=== PATIENT | male | born 1995 | race Caucasian/White ===

== ENCOUNTER 2018-08-22 19:45 | Emergency (ER) | payer OTHER ==
[2018-08-22 20:17] VITALS: BP 121/76; PULSE 78; TEMP 99.3; BMI 29.2
[2018-08-22] MEDS ORDERED: MECLIZINE HCL 25 MG TABLET (FP) PO ONE (21:47)
--- NOTE | 2018-08-22 21:54 | PDOC ---
History of Present Illness - General Chief Complaint: Pain Stated Complaint: LIGHTHEADED Time Seen by Provider: 08/22/18 21:32 History Source: Patient Exam Limitations: No Limitations - History of Present Illness Initial Comments: 08/22/18 21:47 HISTORY OF PRESENT ILLNESS: This is a 22-year-old male denies medical history presents emergency Department with intermittent periods of dizziness for the past 4 days. Patient states he has a room spinning feeling which lasts for a couple of seconds up to a few minutes which is accompanied by nausea. Patient denies any vomiting. Patient is unable to identify any associated aggravating or alleviating factors. He denies any blurry vision, headaches, fevers, chills, chest pain, shortness of breath. He denies any recent massage or chiropractic procedures. No recent travel or sick contacts. PAST MEDICAL HISTORY: Denies past medical history SURGICAL HISTORY: Denies ALLERGIES: No known drug allergies REVIEW OF SYSTEMS General/Constitutional: Denies fever or chills. Denies weakness, weight change. HEENT: Denies change in vision. Denies ear pain or discharge. Denies sore throat. Cardiovascular: Denies chest pain or shortness of breath. Respiratory: Denies cough, wheezing, or hemoptysis. Gastrointestinal: Denies vomiting, diarrhea or constipation. Denies rectal bleeding. Reports nausea. Genitourinary: Denies dysuria, frequency, or change in urination. Musculoskeletal: Denies joint or muscle swelling or pain. Denies neck or back pain. Skin and breasts: Denies rash or easy bruising. Neurologic: Denies headache, loss of consciousness, or loss of sensation. Endorses vertigo. Psychiatric: Denies depression or anxiety. Endocrine: Denies increased thirst. Denies abnormal weight change. Hematologic/Lymphatic: Denies anemia, easy bleeding, or history of blood clots. Allergic/Immunologic: Denies hives or skin allergy. Denies latex allergy. PHYSICAL EXAM General Appearance: Well-appearing, appropriately dressed. No apparent distress , no intoxication. HEENT: EOMI, PERRLA, normal ENT inspection, normal voice, TMs normal, pharynx normal. No conjunctival pallor. No photophobia, scleral icterus. Neck: Supple. Trachea midline. No tenderness, rigidity, carotid bruit, stridor , lymphadenopathy, or thyromegaly. Respiratory/Chest: Lungs CTAB. No shortness of breath, chest tenderness, respiratory distress, accessory muscle use. No crackles, rales, rhonchi, stridor , wheezing, dullness Cardiovascular: RRR. S1, S2. No JVD, murmur, bradycardia, tachycardia. Vascular Pulses: Dorsalis-Pedis (R): 2+, Dorsalis-Pedis (L): 2+ Gastrointestinal/Abdominal: Normal bowel sounds. Abdomen soft, non-distended. No tenderness or rebound tenderness. No organomegaly, pulsatile mass, guarding, hernia, hepatomegaly, splenomegaly. Lymphatic: No adenopathy, tenderness. Musculoskeletal/Extremities: Normal inspection. FROM of all extremities, normal capillary refill. Pelvis Stable. No CVA tenderness. No tenderness to extremities, pedal edema, swelling, erythema or deformity. Integumentary: Appropriate color, dry, warm. 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 Fully oriented, alert. Appropriate mood/affect. Motor strength 5/5. No appreciable EOM palsy, facial droop or sensory deficit. +[place]-hallpike worse on right compared to left. Past History - Past Medical History Allergies/Adverse Reactions: Allergies Allergy/AdvReac Type Severity Reaction Status Date / Time shellfish derived Allergy Verified 08/22/18 20:17 Home Medications: Ambulatory Orders NK [No Known Home Medication] 08/22/18 COPD: No - Suicide/Smoking/Psychosocial Hx Smoking History: Never smoked *Physical Exam - Vital Signs Last Vital Signs Temp Pulse Resp BP Pulse Ox 99.3 F 78 18 121/76 98 08/22/18 20:15 08/22/18 20:15 08/22/18 20:15 08/22/18 20:15 08/22/18 20:15 Medical Decision Making - Medical Decision Making 08/22/18 21:52 A/P: 22-year-old male with intermittent dizziness for the past 4 days Cranial nerves II through XII grossly intact. EOMI. PERRLA. Positive [place]pike right worse than left Physical exam this is likely vertigo. Meclizine 50 mg orally now, reassess While patient has a normal neurologic exam and physical exam is consistent with vertigo, patient is requesting a CAT scan. As explained to the patient the risks of CAT scan in the matter of radiation would not be beneficial in his treatment as CAT scan is a suboptimal study for evaluation of vertigo. Patient insists on having a CAT scan I will perform. 08/22/18 22:[address] as read by Dr. Moya: Negative exam. No discrete noncontrast CT pathology is identified. Patient is currently free of all symptoms. I will discharge the patient home to follow-up with his primary doctor for continued evaluation. 08/23/18 21:46 *DC/Admit/Observation/Transfer Diagnosis at time of Disposition: BPPV (benign paroxysmal positional vertigo) Qualifiers: Laterality: bilateral Qualified Code(s): H81.13 - Benign paroxysmal vertigo, bilateral - Discharge Dispostion Disposition: HOME Condition at time of disposition: Stable Decision to Admit order: No - Referrals Referrals: Arsalan Pineda MD [Primary Care Provider] - - Patient Instructions Additional Instructions: The CAT scan of her head was negative today. This was a normal exam. Take meclizine as directed by manufacturers instructions. This medication is [id number] and you do not need a prescription. Keep well-hydrated. Make an appointment with her primary doctor for continued evaluation. Return to emergency department for any concerns. - Post Discharge Activity
[2018-08-22] MEDS ORDERED: MECLIZINE HCL 25 MG TABLET (FP) ONE (21:57)
== END 2018-08-22 22:56 | disposition home or self-care (01) ==
LOC: JERFT 19:45
PROC: 3E0333Z Introduction of Anti-inflammatory into Peripheral Vein, Percutaneous Approach (ICD-10-PCS; principal; 2018-08-22)
DX: H81.13 Benign paroxysmal vertigo, bilateral (principal)
CPT/HCPCS: 70450-TC; 99281-25